=== PATIENT | male | born 1955 | race African-American/Black ===

== ENCOUNTER 2016-04-03 13:45 | Emergency (ER) | payer OTHER ==
[~2016-04-03] VITALS: Ht 175.3 cm; Wt 86.2 kg
[~2016-04-03 13:45] MED LIST: ALBUTEROL SULF8.5 GM INH; ASPIR 8181 MG ORAL; BENADRYL25 MG ORAL; EPIPEN 2-P0.3 MG/0.3 IM; HYDROCHLOROTHIA25 MG ORAL; PEPCID AC20 M2 PO; PEPCID20 MG ORAL; PREDNISONE20 MG ORAL; PREDNISONE50 MG ORAL; RANITIDINE HCL150 MG ORAL; TRICOR54 MG ORAL
[2016-04-03] MEDS ORDERED: SIMVASTATIN40 MG ORAL (13:51)
[2016-04-03] MEDS ORDERED: METFORMIN HCL1000 M1 ORAL (13:51)
[2016-04-03] MEDS ORDERED: IBUPROFEN600 MG ORAL (14:12)
[2016-04-03] MEDS ORDERED: CYCLOBENZAPRINE10 MG ORAL (14:12)
[2016-04-03] MEDS ORDERED: Ketorolac 30mg Inj IM ONE (14:15)
[2016-04-03 14:32] VITALS: BP 149/87
--- NOTE | 2016-04-03 16:47 | Emergency Room Report ---
History of Present Illness General Chief Complaint: Pain Present Illness HPI The patient is a 61-year-old male presenting for left lower back pain which began this morning. The patient states that he was gardening yesterday and felt an immediate sharp pain in the left lower back while bending over and twisting. The patient denies prior injury to the back. Pain is described as a 9/10 sharp sensation which radiates down the left leg. Pain worse with movement such as bending over or twisting. The patient denies any numbness or tingling. No other complaints Allergies: Coded Allergies: [place] Seed (Unverified Allergy, Unknown, 10/20/14) [place] Seed Oil (Unverified Allergy, Unknown, 10/20/14) Patient History Past Medical History: see triage record Pertinent Family History: none Reviewed Nursing Documentation: PMH: Agreed, PSxH: Agreed Nursing Documentation-PMH Hx Cardiac Problems: No Hx Hypertension: Yes Hx Pacemaker: No Hx Asthma: No Hx COPD: Yes - lung bulae Hx Diabetes: Yes Hx Cancer: No Hx Gastrointestinal Problems: Yes - HERNIA Hx Dialysis: No Hx Neurological Problems: No Hx Cerebrovascular Accident: No Hx Seizures: No Review of Systems All Other Systems: negative except mentioned in HPI Physical Exam Vital Signs Date Time Temp Pulse Resp B/P Pulse Ox O2 Delivery O2 Flow Rate FiO2 04/03/16 13:48 98.2 83 20 131/90 100 Room Air Sp02 EP Interpretation: reviewed, normal General Appearance: no apparent distress, alert, GCS 15, non-toxic Head: normocephalic, atraumatic Eyes: bilateral eye PERRL, bilateral eye normal inspection Musculoskeletal: normal inspection, back normal, gait/station normal, normal range of motion, no calf tenderness, pelvis stable, tender - TTP over L paraspinous muscles Neurologic: alert, oriented x3, responsive, motor strength/tone normal, sensory intact, normal gait, speech normal Psychiatric: judgement/insight normal, memory normal, mood/affect normal, no suicidal/homicidal ideation Reflexes: 3+ bicep (R), 3+ bicep (L), 3+ tricep (R), 3+ tricep (L), 3+ knee (R) , 3+ knee (L) Skin: normal color, no rash, warm/dry, well hydrated Medical Decision Making PA Attestation Dr. Lee is my supervising physician. Patient management was discussed with my supervising physician Diagnostic Impression: Primary Impression: Muscle spasm of back ER Course The patient is a 61-year-old male presenting for left lower back pain which began this morning. Ddx considered include but not limited to sprain/strain, muscle spasm, disc herniation, fracture, contusion PE: NAD. Back: No midline tenderness. No step-offs. Sensation intact to light touch. There is tenderness to palpation over left paraspinous muscles. Normal gait. Full active range of motion The patient is given Toradol for pain and states he is feeling better. The patient will be discharged home with a prescription for Flexeril and Motrin. The patient will also use heat therapy. ER precautions are given Last Vital Signs Date Time Temp Pulse Resp B/P Pulse Ox O2 Delivery O2 Flow Rate FiO2 04/03/16 14:32 98.2 73 20 149/87 96 Room Air Status: improved Disposition: HOME, SELF-CARE Condition: Improved Scripts Cyclobenzaprine Hcl* (FLEXERIL*) 10 Mg Tablet 10 MG ORAL THREE TIMES A DAY, #15 TAB Prov: SARAH URBINA 04/03/16 Ibuprofen* (MOTRIN*) 600 Mg Tablet 600 MG ORAL Q8H Y for For Pain, #30 TAB 0 Refills Prov: SARAH URBINA 04/03/16 Patient Instructions: Back Pain, Adult, Heat Therapy Additional Instructions: I discussed my findings with the patient. All questions and concerns have been answered. Treatment and medication compliance have been addressed. I advised the patient that they need to follow up with PMD in 3-5 days. Return to ED if pain remains or worsens, numbness or tingling occurs, new rash is noticed, fever is noticed, or if needed for any reason. Patient verbalized understanding of discharge instructions. SARAH URBINA Apr 03, 2016 16:47
== END 2016-04-03 14:35 | disposition home or self-care (01) ==
LOC: EMR 14:05
DX: M62.830 Muscle spasm of back (principal); I10 Essential (primary) hypertension; E11.9 Type 2 diabetes mellitus without complications; J44.9 Chronic obstructive pulmonary disease, unspecified
CPT/HCPCS: 96372; 99283; J1885

== ENCOUNTER 2016-08-11 12:27 | Emergency (ER) | payer OTHER ==
[~2016-08-11] VITALS: Ht 175.3 cm; Wt 87.5 kg
[~2016-08-11 12:27] MED LIST changes: +CYCLOBENZAPRINE10 MG ORAL; +IBUPROFEN600 MG ORAL; +METFORMIN HCL1000 M1 ORAL; +SIMVASTATIN40 MG ORAL
[2016-08-11] MEDS ORDERED: Dexamethasone 4mg/ml vial IVP ONE (12:45)
[2016-08-11] MEDS ORDERED: DiphenhydrAMINE 50mg/ml Inj IVP ONE (12:45)
[2016-08-11] MEDS ORDERED: PREDNISONE10 MG ORAL (12:48)
--- NOTE | 2016-08-11 12:59 | Emergency Room Report ---
History of Present Illness General Chief Complaint: Allergic Reaction Source: Patient, Medical Record Present Illness HPI Patient is a 61-year-old male who presented after increased difficulty breathing. Patient gradual onset of symptoms. He thinks he is having an allergic reaction. Patient reported having intermittent symptoms for about one week. Patient said he had intermittent sore throat associated with some lip swelling. The patient is not taking MENG inhibitors. He said prior allergy to some flower oil. He has prior history of diabetes.Patient gradual onset of symptoms. He reported having increased trouble breathing.The patient chronically takes prednisone. He denies any fever. Allergies: Coded Allergies: [place] Seed (Unverified Allergy, Unknown, 10/20/14) [place] Seed Oil (Unverified Allergy, Unknown, 10/20/14) Patient History Past Medical History: see triage record Reviewed Nursing Documentation: PMH: Agreed, PSxH: Agreed Nursing Documentation-PMH Past Medical History: No History, Except For Hx Cardiac Problems: No Hx Hypertension: Yes Hx Pacemaker: No Hx Asthma: No Hx COPD: Yes - lung bulae Hx Diabetes: Yes Hx Cancer: No Hx Gastrointestinal Problems: Yes - HERNIA Hx Dialysis: No Hx Neurological Problems: No Hx Cerebrovascular Accident: No Hx Seizures: No Review of Systems All Other Systems: negative except mentioned in HPI Physical Exam Vital Signs Date Time Temp Pulse Resp B/P Pulse Ox O2 Delivery O2 Flow Rate FiO2 08/11/16 12:31 98.2 76 18 137/96 97 Room Air Sp02 EP Interpretation: reviewed, normal General Appearance: normal inspection, well appearing, no apparent distress, alert, GCS 15 Head: atraumatic ENT: hearing grossly normal, normal voice, pharyngeal erythema, other - swelling to oropharynx partially visualized on oral exam Neck: normal inspection, full range of motion, supple, no bony tend Respiratory: normal inspection, lungs clear, normal breath sounds, no respiratory distress, no retraction, no wheezing Cardiovascular #1: regular rate, rhythm, no edema Gastrointestinal: normal inspection, normal bowel sounds, non tender, soft, no guarding, no hernia Genitourinary: no CVA tenderness Musculoskeletal: normal inspection, back normal, normal range of motion Neurologic: normal inspection, alert, oriented x3, responsive, dressmaker or tailor III-XII nml as tested, speech normal Psychiatric: normal inspection, judgement/insight normal, mood/affect normal Skin: normal inspection, normal color, no rash Medical Decision Making Diagnostic Impression: Primary Impression: Allergic reaction ER Course Patient presented for shortness of breath.Differential included but was not limited to anemia, pneumonia, pneumothorax, myocardial infarction, pericardial effusion, congestive heart failure, acidosis. Because of complexity of patient' s case laboratory testing and imaging studies were ordered.The patient was given IV antihistamines as well as IV steroids. CT of the neck was ordered to the evaluated for possible abscess.A CT of the neck with IV contrast read by radiology showed notable soft tissue prominence low density suspicious for mass in the area of the left area epiglottic fold there is no lymphadenopathy epiglottis appeared normal there is bullous lung disease in the right lung apex especially. The patient was given IV steroids as well as IV Benadryl. He reported having improvement in his symptoms.The patient showed no evidence of stridor or worsening airway obstruction at this time. Due to the location of the area of swelling patient will likely require ENT consultation Labs Test 08/11/16 12:50 White Blood Count 10.1 K/UL (4.8-10.8) Red Blood Count 5.41 M/UL (4.70-6.10) Hemoglobin 16.3 G/DL (14.2-18.0) Hematocrit 47.8 % (42.0-52.0) Mean Corpuscular Volume 88 FL (80-99) Mean Corpuscular Hemoglobin 30.1 PG (27.0-31.0) Mean Corpuscular Hemoglobin Concent 34.1 G/DL (32.0-36.0) Red Cell Distribution Width 12.8 % (11.6-14.8) Platelet Count 213 K/UL (150-450) Mean Platelet Volume 9.4 FL (6.5-10.1) Neutrophils (%) (Auto) 57.0 % (45.0-75.0) Lymphocytes (%) (Auto) 33.2 % (20.0-45.0) Monocytes (%) (Auto) 6.0 % (1.0-10.0) Eosinophils (%) (Auto) 2.3 % (0.0-3.0) Basophils (%) (Auto) 1.5 % (0.0-2.0) Prothrombin Time 9.8 SEC (9.30-11.50) Prothromb Time International Ratio 0.9 (0.9-1.1) Activated Partial Thromboplast Time 27 SEC (23-33) Sodium Level 138 mEQ/L (135-145) Potassium Level 3.2 mEQ/L (3.4-4.9) Chloride Level 97 mEQ/L (98-107) Carbon Dioxide Level 24 mEQ/L (20-30) Anion Gap 17 (5-15) Blood Urea Nitrogen 11 mg/dL (7-23) Creatinine 1.0 mg/dL (0.7-1.2) Estimat Glomerular Filtration Rate > 60 mL/min (>60) Glucose Level 204 mg/dL (74-106) Calcium Level 9.4 mg/dL (8.6-10.2) Total Bilirubin 0.4 mg/dL (0.0-1.2) Aspartate Amino Transf (AST/SGOT) 12 U/L (5-40) Alanine Aminotransferase (ALT/SGPT) 8 U/L (3-41) Alkaline Phosphatase 57 U/L (40-129) Total Protein 7.2 g/dL (6.6-8.7) Albumin 4.0 g/dL (3.5-5.2) Globulin 3.2 g/dL Albumin/Globulin Ratio 1.2 (1.0-2.7) Last Vital Signs Date Time Temp Pulse Resp B/P Pulse Ox O2 Delivery O2 Flow Rate FiO2 08/11/16 12:31 98.2 76 18 137/96 97 Room Air Status: improved Referrals: NOT CHOSEN IPA/,REFERRING (PCP) Gordon Moe Aug 11, 2016 12:59
[2016-08-11 13:06] LABS: BASOPHILS % (AUTO) 1.5 % (0.0-2.0); EOSINOPHILS % (AUTO) 2.3 % (0.0-3.0); LYMPHOCYTES % (AUTO) 33.2 % (20.0-45.0); MEAN CORPUSCULAR HEMOGLOBIN 30.1 PG (27.0-31.0); MEAN CORPUSCULAR HGB CONC 34.1 G/DL (32.0-36.0); MEAN CORPUSCULAR VOLUME 88 FL (80-99); MEAN PLATELET VOLUME 9.4 FL (6.5-10.1); PLATELET COUNT 213 K/UL (150-450); RED BLOOD COUNT 5.41 M/UL (4.70-6.10); RED CELL DISTRIBUTION WIDTH 12.8 % (11.6-14.8); WHITE BLOOD COUNT 10.1 K/UL (4.8-10.8)
[2016-08-11 13:12] LABS: INR 0.9 (0.9-1.1); PROTHROMBIN TIME 9.8 SEC (9.30-11.50)
[2016-08-11 13:18] LABS: ALANINE AMINOTRANSFERASE 8 U/L (3-41); ALBUMIN/GLOBULIN RATIO 1.2 (1.0-2.7); ANION GAP 17 (5-15); ASPARTATE AMINO TRANSFERASE 12 U/L (5-40); CALCIUM 9.4 mg/dL (8.6-10.2); CARBON DIOXIDE 24 mEQ/L (20-30); CHLORIDE 97 mEQ/L (98-107); GLOMERULAR FILTRATION RATE > 60 mL/min (>60); HEMOLYSIS 5; POTASSIUM 3.2 mEQ/L (3.4-4.9); SODIUM 138 mEQ/L (135-145); TOTAL PROTEIN 7.2 g/dL (6.6-8.7)
[2016-08-11 14:00] VITALS: BP 126/86
--- NOTE | 2016-08-11 14:47 | Diagnostic Imaging Report ---
Indication: Neck pain. Technique: Continuous helical imaging of the neck was obtained transaxially from the skull base to the upper thoracic spine during intravenous administration of nonionic contrast. 2-D coronal and sagittal reformatted images were obtained. Total Dose length Product (DLP): [address] Dose Index Volume (CTDIvol): 8, 81, 21 mGy Comparison: None Findings: In the supraglottic airway, in the area of the left aryepiglottic fold there is notable soft tissue prominence and low density. This is suspicious for mass and further evaluation with endoscopy is recommended. Finding is seen for example on (series 5, images 37-43). There is no lymphadenopathy within the neck. The parapharyngeal fat appears normal. Epiglottis appears normal. Cartilaginous structures, major vessels, the glands are unremarkable in appearance. There is narrowing of intervertebral discs and accompanying endplate osteophyte formation. Hypertrophied facet uncovertebral joints also demonstrated. Skull base is unremarkable. Bullous disease is fairly extensive within the visualized part of the lungs especially in the right lung apex. Mild arterial vascular calcifications are present. Impression: Suspected mass in the left aspect of the supraglottic airway. Endoscopy and ENT evaluation is recommended. Bullous emphysema. Mild atherosclerotic gastric disease Spondylosis of the cervical spine The CT scanner at [facility] is accredited by the [employer] and the scans are performed using dose optimization techniques as appropriate to a performed exam including Automatic Exposure control.
[2016-08-11 16:00] VITALS: BP 124/86
[2016-08-11 18:00] VITALS: BP 127/90
[2016-08-11 18:05] VITALS: BP 127/90
== END 2016-08-11 18:05 | disposition short-term general hospital (02) ==
LOC: EMR 12:47
DX: T78.40XA Allergy, unspecified, initial encounter (principal); R06.00 Dyspnea, unspecified; E11.9 Type 2 diabetes mellitus without complications; I10 Essential (primary) hypertension; J44.9 Chronic obstructive pulmonary disease, unspecified; X58.XXXA Exposure to other specified factors, initial encounter; Y92.9 Unspecified place or not applicable
CPT/HCPCS: 36415; 70491; 80053; 85025; 85610; 85730; 96374; 96375; 99284; J1100; J1200; Q9967

== ENCOUNTER 2016-08-27 13:25 | Emergency (ER) | payer OTHER ==
[~2016-08-27] VITALS: Ht 167.6 cm; Wt 86.2 kg
[~2016-08-27 13:25] MED LIST changes: +PREDNISONE10 MG ORAL
[2016-08-27] MEDS ORDERED: DiphenhydrAMINE 50mg/ml Inj IVP ONE (13:45)
[2016-08-27] MEDS ORDERED: Solu-MEDROL 125mg Inj IVP ONE (13:45)
[2016-08-27 14:00] VITALS: BP 128/91
[2016-08-27] MEDS ORDERED: Racemic EPINEPHrine 2.25% 0.5ml HHN ONE (14:00)
[2016-08-27] MEDS ORDERED: Albuterol ud Inhalation HHN ONE (14:00)
[2016-08-27 14:05] LABS: BASOPHILS % (AUTO) 1.4 % (0.0-2.0); EOSINOPHILS % (AUTO) 1.7 % (0.0-3.0); LYMPHOCYTES % (AUTO) 35.7 % (20.0-45.0); MEAN CORPUSCULAR HEMOGLOBIN 31.2 PG (27.0-31.0); MEAN CORPUSCULAR VOLUME 92 FL (80-99); MEAN PLATELET VOLUME 9.5 FL (6.5-10.1); MONOCYTES % (AUTO) 4.2 % (1.0-10.0); PLATELET COUNT 228 K/UL (150-450); RED BLOOD COUNT 5.32 M/UL (4.70-6.10); RED CELL DISTRIBUTION WIDTH 12.4 % (11.6-14.8); WHITE BLOOD COUNT 10.4 K/UL (4.8-10.8)
[2016-08-27] MEDS ORDERED: JANUVIA25 MG ORAL (14:08)
[2016-08-27] MEDS ORDERED: HYDROXYZINE HCL25 M1 PO (14:08)
[2016-08-27 14:19] LABS: ALANINE AMINOTRANSFERASE 10 U/L (3-41); ALBUMIN/GLOBULIN RATIO 1.4 (1.0-2.7); ANION GAP 14 (5-15); ASPARTATE AMINO TRANSFERASE 12 U/L (5-40); CALCIUM 8.8 mg/dL (8.6-10.2); CARBON DIOXIDE 25 mEQ/L (20-30); CHLORIDE 97 mEQ/L (98-107); GLOMERULAR FILTRATION RATE > 60 mL/min (>60); HEMOLYSIS 6; POTASSIUM 3.5 mEQ/L (3.4-4.9); SODIUM 136 mEQ/L (135-145); TOTAL PROTEIN 6.5 g/dL (6.6-8.7)
--- NOTE | 2016-08-27 14:39 | Emergency Room Report ---
History of Present Illness General Chief Complaint: Allergic Reaction Source: Patient Present Illness HPI The patient presents with throat pain and swelling that began at 10 AM. It begins with itching on his palms. He believes he something had sunflowers in it. Has an allergy to sunflower seeds at will. He was seen here 08/11 with an allergic reaction. At that time a CT was performed which suspected a mass in the left aspect of the supraglottic airway. He was transferred for evaluation of this. He states that the swelling has not changed at this time. He denies any nausea vomiting. He has slight wheezes. He also suffers from bullous emphysema and has frequent wheezing. He denies any fevers, chills, chest pain, dysuria, extremity pain. The patient is refusing CT and admission to the hospital. CT 08/11: Impression: Suspected mass in the left aspect of the supraglottic airway. Endoscopy and ENT evaluation is recommended. Bullous emphysema. Mild atherosclerotic gastric disease Spondylosis of the cervical spine Allergies: Coded Allergies: [place] Seed (Unverified Allergy, Unknown, 10/20/14) [place] Seed Oil (Unverified Allergy, Unknown, 10/20/14) Patient History Past Medical History: see triage record Social History: Reports: smoking Social History Narrative from home Reviewed Nursing Documentation: PMH: Agreed, PSxH: Agreed Nursing Documentation-PMH Hx Cardiac Problems: No Hx Hypertension: Yes Hx Pacemaker: No Hx Asthma: No Hx COPD: Yes - lung bulae Hx Diabetes: Yes Hx Cancer: No Hx Gastrointestinal Problems: Yes - HERNIA Hx Dialysis: No Hx Neurological Problems: No Hx Cerebrovascular Accident: No Hx Seizures: No Review of Systems All Other Systems: negative except mentioned in HPI Physical Exam Vital Signs Date Time Temp Pulse Resp B/P Pulse Ox O2 Delivery O2 Flow Rate FiO2 08/27/16 13:33 97.9 79 17 118/81 95 Room Air Sp02 EP Interpretation: reviewed, normal General Appearance: well appearing, no apparent distress, GCS 15 Head: normocephalic, atraumatic Eyes: bilateral eye normal inspection ENT: no angioedema, normal voice - soft spoken, moist mucus membranes, pharyngeal erythema - minimal Neck: supple Respiratory: wheezing, expiration - minimal Cardiovascular #1: regular rate, rhythm Cardiovascular #2: 2+ radial (R) Gastrointestinal: normal inspection, normal bowel sounds, non tender, no mass, non-distended Musculoskeletal: back normal, gait/station normal, normal range of motion Neurologic: alert, oriented x3, grossly normal Psychiatric: depressed affect Skin: normal inspection, warm/dry Medical Decision Making Diagnostic Impression: Primary Impression: Allergic reaction Qualified Codes: T78.40XA - Allergy, unspecified, initial encounter Additional Impressions: Bullous emphysema Supraglottic mass ER Course Presents with throat pain and swelling after suspected exposure to sunflower products. There is a history of allergic reaction in the past. He believes that's what is going on at this time. In the past there was a subglottic mass. We need to evaluate what was found when he was transferred the other hospital. He states is not as severe as last time. Evaluation will be undertaken with EKG, labs and cardiac monitoring. The patient will have treatment with Solu-Medrol, Benadryl and albuterol with racemic epi. He states when transferred, no ENT evaluation was performed. He is still refusing admission to hospital and further evaluation. Improved. Some throat discomfort, but no resp difficulty or problems swallowing. Told of imprortance of ENT evaluation. Requesting something to help with palm itching. TAC prescribed. Patient stable for outpatient observation and treatment. Laboratory Tests Test 08/27/16 13:45 White Blood Count 10.4 K/UL (4.8-10.8) Red Blood Count 5.32 M/UL (4.70-6.10) Hemoglobin 16.6 G/DL (14.2-18.0) Hematocrit 48.8 % (42.0-52.0) Mean Corpuscular Volume 92 FL (80-99) Mean Corpuscular Hemoglobin 31.2 PG (27.0-31.0) H Mean Corpuscular Hemoglobin Concent 34.0 G/DL (32.0-36.0) Red Cell Distribution Width 12.4 % (11.6-14.8) Platelet Count 228 K/UL (150-450) Mean Platelet Volume 9.5 FL (6.5-10.1) Neutrophils (%) (Auto) 57.0 % (45.0-75.0) Lymphocytes (%) (Auto) 35.7 % (20.0-45.0) Monocytes (%) (Auto) 4.2 % (1.0-10.0) Eosinophils (%) (Auto) 1.7 % (0.0-3.0) Basophils (%) (Auto) 1.4 % (0.0-2.0) Sodium Level 136 mEQ/L (135-145) Potassium Level 3.5 mEQ/L (3.4-4.9) Chloride Level 97 mEQ/L (98-107) L Carbon Dioxide Level 25 mEQ/L (20-30) Anion Gap 14 (5-15) Blood Urea Nitrogen 12 mg/dL (7-23) Creatinine 1.0 mg/dL (0.7-1.2) Estimate Glomerular Filtration Rate > 60 mL/min (>60) Glucose Level 149 mg/dL (74-106) H Calcium Level 8.8 mg/dL (8.6-10.2) Total Bilirubin 0.3 mg/dL (0.0-1.2) Aspartate Amino Transferase (AST) 12 U/L (5-40) Alanine Aminotransferase (ALT) 10 U/L (3-41) Alkaline Phosphatase 55 U/L (40-129) Total Protein 6.5 g/dL (6.6-8.7) L Albumin 3.8 g/dL (3.5-5.2) Globulin 2.7 g/dL Albumin/Globulin Ratio 1.4 (1.0-2.7) EKG Diagnostic Results Rate: normal Rhythm: NSR ST Segments: no acute changes Rhythm Strip Diag. Results EP Interpretation: yes Rhythm: NSR, no PVC's, no ectopy Chest X-Ray Diagnostic Results Chest X-Ray Ordered: No Last Vital Signs Date Time Temp Pulse Resp B/P Pulse Ox O2 Delivery O2 Flow Rate FiO2 08/27/16 16:35 82 19 117/83 100 Room Air 08/27/16 14:00 97.5 Status: improved Disposition: HOME, SELF-CARE Condition: Improved Scripts Triamcinolone (Kenalog-10) 10 Mg/1 Ml Vial 50 MG IARTIC BID, #60 VIAL Prov: Eliazar Ivey M.D. 08/27/16 Diphenhydramine Hcl* (BENADRYL*) 25 Mg Capsule 25 MG ORAL Q6H Y for Itching, #20 CAP Prov: Eliazar Ivey M.D. 08/27/16 Prednisone* (PREDNISONE*) 20 Mg Tablet 20 MG ORAL DAILY for 5 Days, #5 TAB Prov: Eliazar Ivey M.D. 08/27/16 Eliazar Ivey M.D. Aug 27, 2016 14:39
[2016-08-27 15:07] VITALS: BP 106/68
[2016-08-27] MEDS ORDERED: BENADRYL25 MG ORAL (16:21)
[2016-08-27] MEDS ORDERED: PREDNISONE20 MG ORAL (16:21)
[2016-08-27 16:35] VITALS: BP 117/83
[2016-08-27] MEDS ORDERED: KENALOG-1010 MG/ML IARTIC (16:44)
== END 2016-08-27 16:38 | disposition home or self-care (01) ==
LOC: EMR 14:05
DX: T78.40XA Allergy, unspecified, initial encounter (principal); X58.XXXA Exposure to other specified factors, initial encounter; J43.9 Emphysema, unspecified; R22.9 Localized swelling, mass and lump, unspecified; E11.9 Type 2 diabetes mellitus without complications; I10 Essential (primary) hypertension; F17.200 Nicotine dependence, unspecified, uncomplicated; Z91.018 Allergy to other foods
CPT/HCPCS: 36415; 80053; 85025; 93005; 96374; 96375; 99284; J1200; J2930

== ENCOUNTER 2019-12-11 17:05 | Emergency (ER) | payer OTHER ==
[~2019-12-11] VITALS: Ht 175.3 cm; Wt 83.5 kg
[~2019-12-11 17:05] MED LIST changes: +DOXYCYCLINE MO100 MG ORAL; +HYDROXYZINE HCL25 M1 PO; +JANUVIA25 MG ORAL; +KENALOG-1010 MG/ML IARTIC
[2019-12-11 17:45] VITALS: BP 139/91
[2019-12-11] MEDS ORDERED: Methocarbamol 750mg tab ORAL ONE (18:00)
[2019-12-11] MEDS ORDERED: Ketorolac 30mg Inj IM ONE (18:00)
--- NOTE | 2019-12-11 18:56 | Diagnostic Imaging Report ---
EXAM: CT Chest Without Intravenous Contrast CLINICAL HISTORY: TRAUMA TECHNIQUE: Axial computed tomography images of the chest without intravenous contrast. CTDI is 25.7 mGy and DLP is 828.7 mGy-cm. One or more of the following dose reduction techniques were used: automated exposure control, adjustment of the mA and/or kV according to patient size, use of iterative reconstruction technique. COMPARISON: 12/02/2019. FINDINGS: Lungs: There is extensive diffuse bullous change in the right upper and midlung zones, similar to the study of 12/02/2019. Areas of subsegmental atelectasis at the right lung base. Scarring and subsegmental atelectasis at the left lung base. The airways patent. Pleural space: No right pleural effusion. No pneumothorax. Heart: No cardiomegaly per No significant pericardial effusion. Thyroid: The thyroid gland is unremarkable. Bones/joints: The clavicles are unremarkable. Evaluation of the right ribs reveals no acute right rib fractures. Evaluation of the left ribs reveals no acute left rib fractures. Moderate degenerative disc disease of the thoracic spine. The sternum is unremarkable. 0.8 cm probable left adrenal adenoma. No dislocation. Soft tissues: Unremarkable. Vasculature: Atherosclerotic disease of the thoracic aorta. No thoracic aortic aneurysm. Lymph nodes: No pathologic hilar, mediastinal, or axillary lymphadenopathy. Kidneys and ureters: Nonspecific stranding about the perinephric spaces. Other findings: Minimal ASCVD. Spinous processes are unremarkable. IMPRESSION: 1. COPD. 2. No acute injury to the chest is detected. 3. Diffuse fatty infiltration of the liver is noted.
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
[2019-12-11] MEDS ORDERED: ROBAXIN-500MG ORAL (19:14)
[2019-12-11] MEDS ORDERED: IBUPROFEN400 MG ORAL (19:14)
[2019-12-11] MEDS ORDERED: LIDODERM700 M1 TOPIC (19:14)
[2019-12-11 19:20] VITALS: BP 135/80
--- NOTE | 2019-12-11 19:47 | Diagnostic Imaging Report ---
EXAM: CT Neck Without Intravenous Contrast CLINICAL HISTORY: TRAUMA TECHNIQUE: Axial computed tomography images of the neck without intravenous contrast. CTDI is 25.2 mGy and DLP is 828.7 mGy-cm. One or more of the following dose reduction techniques were used: automated exposure control, adjustment of the mA and/or kV according to patient size, use of iterative reconstruction technique. COMPARISON: Neck CT 08/11/2016. FINDINGS: Oropharynx: Unremarkable. No significant tonsillar enlargement. Hypopharynx: Unremarkable. Larynx: Unremarkable. Normal epiglottis. Trachea: Unremarkable. Retropharyngeal space: Unremarkable. Submandibular/parotid glands: Unremarkable. Glands are normal in size. Thyroid: Unremarkable. No enlarged or calcified nodules. Bones/joints: Cervical degenerative disc disease and facet arthropathy. No acute fracture. Soft tissues: Unremarkable. Vasculature: No acute findings. Lymph nodes: Unremarkable. No lymphadenopathy. Dental: Periodontal disease. Lung apices: Severe centrilobular, paraseptal emphysema. Large bulla in the right upper lobe. IMPRESSION: No evidence for acute trauma in the neck.
== END 2019-12-11 19:20 | disposition home or self-care (01) ==
LOC: EMR 19:10
DX: S20.219A Contusion of unspecified front wall of thorax, initial encounter (principal); S16.1XXA Strain of muscle, fascia and tendon at neck level, initial encounter; J43.9 Emphysema, unspecified; I10 Essential (primary) hypertension; J44.9 Chronic obstructive pulmonary disease, unspecified; E11.9 Type 2 diabetes mellitus without complications; Z79.82 Long term (current) use of aspirin; V47.5XXA Car driver injured in collision with fixed or stationary object in traffic accident, initial encounter; Y92.9 Unspecified place or not applicable; K76.0 Fatty (change of) liver, not elsewhere classified; I70.0 Atherosclerosis of aorta; M50.30 Other cervical disc degeneration, unspecified cervical region; M48.02 Spinal stenosis, cervical region; K05.6 Periodontal disease, unspecified
CPT/HCPCS: 70490; 71250; 96372; 99284; J1885